=== PATIENT | female | born 1975 | race African-American/Black ===

== ENCOUNTER 2018-09-29 23:57 | Emergency (ER) | payer SELFPAY ==
[2018-09-30] MEDS ORDERED: Cyclobenzaprine 10 MG TAB ONE (00:26)
[2018-09-30] MEDS ORDERED: Ibuprofen 600 MG TAB ONE (00:26)
== END 2018-09-30 00:30 | disposition home or self-care (01) ==
LOC: MADERS 23:57
DX: S16.1XXA Strain of muscle, fascia and tendon at neck level, initial encounter (principal); F17.210 Nicotine dependence, cigarettes, uncomplicated; V59.9XXA Occupant (driver) (passenger) of pick-up truck or van injured in unspecified traffic accident, initial encounter
CPT/HCPCS: 99283